=== PATIENT | female | born 1990 | race Caucasian/White ===

== ENCOUNTER 2022-12-07 05:30 | Inpatient (IN) ==
--- NOTE | 2022-11-28 15:14 | Anesthesiology Consultation ---
Date of Service November 28, 2022 Assessment & Plan (1) Encounter for pre-operative examination: Plan - Per corner block cutter on 11/28/2022: No known infectious disease contacts, current infectious disease symptoms in past 10 days or COVID positive test result in the past 90 days. Chart Review Chart Review: entry level paralegal initiated History Surgery Operation Date: 12/07/22 07:30 Proposed Procedures p Section (Delivery of Baby Through Abdominal Incision) - Robyn Carpenter DO s with Bilateral Tubal Ligation - Robyn Carpenter DO Height/Weight Height: 5 ft 11 in Weight: 119.295 kg Allergies Allergy/AdvReac Type Severity Reaction Status Date / Time miconazole [From Monistat 7] Allergy Intermediate burning Verified 11/28/22 14:52 Medications Home Medications Medication Instructions Recorded Confirmed Last Taken prenat.vits,aayush,okz-[id number] 1 tab PO DAILY 05/09/22 11/28/22 Unknown valacyclovir 500 mg tablet 500 mg PO DAILY PRN Break outs 05/11/22 11/28/22 Unknown (Valtrex) ondansetron HCl 4 mg tablet 4 mg PO TID PRN nausea and 06/25/22 11/28/22 Unknown vomiting 5 days #30 tabs promethazine 12.5 mg tablet 12.5 mg PO Q6H PRN nausea and 08/03/22 11/28/22 Unknown vomiting #30 tabs breast pump #1 ea 10/05/22 11/22/22 Unknown Past Medical History Medical History (Updated 11/28/22 @ 15:13 by Asia Burns PA-C) Anxiety Hx of concussion at age 16>hospitalized at time of injury Migraine Past Family History Family History Father Dementia Gall stones Mother Lymphoma Grandfather (Maternal) Breast cancer Grandmother (Maternal) Breast cancer Dementia Grandfather (Paternal) Dementia Aunt Breast cancer Aunt Deep vein thrombosis multiple aunts paternal Grandmother (Maternal) No problems noted. Grandmother (Paternal) Ovarian cancer Uncle Deep vein thrombosis multiple paternal Other Colorectal cancer Dyslipidemia Heart disease Hypertension Kidney disease Thyroid disease Twin Past Surgical History Surgical History (Updated 11/28/22 @ 15:00 by Gini Burns RN) Family history of reaction to anesthesia father>nausea S/P ACL repair left knee Social History Smoking Status: Never smoker Do You Dip or Chew Tobacco: No Hx Alcohol Use: No substance use type: does not use Testing Electrocardiogram Date: 09/19/22 NSR, rate 88 bpm Low voltage QRS Chest X-Ray Date: 09/19/22 *1view* No active disease in the chest
--- NOTE | 2022-12-06 09:34 | History & Physical Report ---
Date of Service December 06, 2022 Assessment & Plan (1) Encounter for pre-operative examination: Plan: Preop visit. Doing well. Plan for with tubal 12/07. Reviewed consent in detail. Discussed plan items - would prefer to do [id number] if possible, dim lights in OR (aware that unable to dim operating spots), delayed cord clamp, delay first bath. Will try to accommodate if safe and possible. (2) Supervision of normal intrauterine in primigravida: History of Present Illness Chief Complaint: elective section, tubal sterilization Primary Care Provider: Yinka Mcdonald 32yo @ 38 08/05, elective primary with tubal sterilization. 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 Allergies Allergy/AdvReac Type Severity Reaction Status Date / Time miconazole [From Monistat 7] Allergy Intermediate burning Verified 12/06/22 08:46 Home Medications Medication Instructions Recorded Confirmed Type prenat.vits,aayush,xub-xutn-htvks 1 tab PO DAILY 05/09/22 12/06/22 History valacyclovir 500 mg tablet 500 mg PO DAILY PRN Break outs 05/11/22 12/06/22 History (Valtrex) ondansetron HCl 4 mg tablet 4 mg PO TID PRN nausea and 06/25/22 12/06/22 Rx vomiting 5 days #30 tabs promethazine 12.5 mg tablet 12.5 mg PO Q6H PRN nausea and 08/03/22 12/06/22 Rx vomiting #30 tabs breast pump #1 ea 10/05/22 12/06/22 Rx Patient History Medical History (Updated 11/28/22 @ 15:13 by Asia Burns PA-C) Anxiety Hx of concussion at age 16>hospitalized at time of injury Migraine Surgical History (Updated 11/28/22 @ 15:00 by Gini Burns RN) Family history of reaction to anesthesia father>nausea S/P ACL repair left knee Family History Father Dementia Gall stones Mother Lymphoma Grandfather (Maternal) Breast cancer Grandmother (Maternal) Breast cancer Dementia Grandfather (Paternal) Dementia Aunt Breast cancer Aunt Deep vein thrombosis multiple aunts paternal Grandmother (Maternal) No problems noted. Grandmother (Paternal) Ovarian cancer Uncle Deep vein thrombosis multiple paternal Other Colorectal cancer Dyslipidemia Heart disease Hypertension Kidney disease Thyroid disease Twin Social History Smoking Status: Never smoker Second Hand Exposure: No; Do You Dip or Chew Tobacco: No; Hx Alcohol Use: No Preferred Language: Amharic [place] Required: No Beliefs That Will Affect Care: None marital status: marital status details: Andrew (33) [phone] Current Living Situation: Spouse Current Living Situation Comment: lives with spouse, 4 cats, 2 dogs, does not use promise litter. current occupational status: employed current occupation: Admin at [employer] Feels Safe at Home: Yes Assistive Devices: None Review of Systems All systems reviewed & are unremarkable except as noted in HPI & below Physical Exam Constitutional: WD/WN, vitals as above Respiratory: normal respiratory effort, lungs clear to auscultation no respiratory distress Cardiovascular: Rate/Rhythm: regular rate and regular rhythm Gastrointestinal (Abdomen): Inspection/Auscultation: abdomen normal to inspection Percussion/Palpation: abdomen soft; abdomen nontender Gravid. No s/s chorio or abruption. Skin: no rashes, warm and dry Psychiatric: A+Ox3, euthymic affect Coding Level of Care Code None Diagnoses Encounter for pre-operative examination Z01.818 Supervision of normal intrauterine in primigravida Z34.00
[2022-12-07] MEDS ORDERED: LACTATED RINGER'S 1,000 ML IV SCH ×2 (06:00→11:25)
[2022-12-07] MEDS ORDERED: CITRIC ACID/SODIUM CITRATE 15 ML UDC PO SCH (06:00)
[2022-12-07] MEDS ORDERED: ceFAZolin 3,000 MG in DEXTROSE 5% 50 ML IV SCH (06:00)
[2022-12-07 06:18] LABS: Basophils # (auto) 0.04 K/uL (0.00-0.20); Basophils % (auto) 0.4 %; Eosinophils # (auto) 0.16 K/uL (0.00-0.50); Eosinophils % (auto) 1.5 %; Hematocrit (blood only) 37.3 % (37.0-47.0); Immature Granulocytes # (auto) 0.06 K/uL (0.01-0.20); Immature Granulocytes % (auto) 0.6 %; Lymphocytes # (auto) 2.25 K/uL (1.20-3.40); Lymphocytes % (auto) 21.6 %; Mean Corpuscular Hemoglobin 30.5 pg (25.0-34.0); Mean Corpuscular Hgb Conc 34.9 g/dL (32.0-36.0); Mean Corpuscular Volume 87.6 fL (80.0-100.0); Mean Platelet Volume 10.8 fL (9.4-12.4); Monocytes # (auto) 0.56 K/uL (0.11-0.59); Monocytes % (auto) 5.4 %; Neutrophils # (auto) 7.36 K/uL (1.40-6.50); Neutrophils % (auto) 70.5 %; Platelet Count 221 K/uL (130-400); RDW Coefficient of Variation 12.5 % (11.5-14.5); RDW Standard Deviation 39.9 fL (36.4-46.3); Red Blood Count 4.26 M/uL (4.20-5.40); White Blood Count 10.43 K/ul (4.8-10.8)
[2022-12-07] MEDS ORDERED: ONDANSETRON INJ 2 MG/ML 2 ML VIAL IV PRN ×2 (07:37→10:12)
[2022-12-07] MEDS ORDERED: ONDANSETRON INJ 2 MG/ML 2 ML VIAL ONE (07:49)
[2022-12-07] MEDS ORDERED: OXYTOCIN 10 UNITS/ML VIAL ONE (07:49)
[2022-12-07] MEDS ORDERED: KETOROLAC 30 MG/ML VIAL ONE (07:49)
[2022-12-07] MEDS ORDERED: MoRPHine SULFATE PF 1 MG/ML 10 ML AMP/VIAL ONE (07:50)
[2022-12-07] MEDS ORDERED: fentaNYL citrate PF 100 MCG/2 ML VIAL ONE (07:50)
--- NOTE | 2022-12-07 08:09 | History & Physical Bridge Note ---
Date of Service December 07, 2022 History & Physical Bridge Note I have examined the patient, reviewed the History & Physical and in the interval since the performance of the History & Physical I have noted the following changes of clinical significance: no changes noted Limited bedside US shows cephalic fetus.
[2022-12-07] MEDS ORDERED: LACTATED RINGER'S 500 ML IV PRN (10:12)
[2022-12-07] MEDS ORDERED: PROMETHAZINE HCL 12.5 MG in SODIUM CHLORIDE 0.9% 50 ML IV PRN (10:12)
[2022-12-07] MEDS ORDERED: KETOROLAC 30 MG/ML VIAL IV PRN (10:12)
[2022-12-07] MEDS ORDERED: ePHEDrine sulfate 50 MG/ML AMP IV PRN (10:12)
[2022-12-07] MEDS ORDERED: ACETAMINOPHEN 1,000 MG/100 ML VIAL IV PRN (10:12)
[2022-12-07] MEDS ORDERED: NALOXONE HCL 1 MG in SODIUM CHLORIDE 0.9% 1,000 ML IV PRN (10:12)
[2022-12-07] MEDS ORDERED: NALBUPHINE HCL INJ 10 MG/ML AMP IV PRN (10:12)
[2022-12-07] MEDS ORDERED: NALOXONE HCL 0.4 MG/1 ML VIAL/CARP IV PRN (10:12)
[2022-12-07] MEDS ORDERED: NALOXONE HCL 0.08 MG in SYRINGE 1.8 ML IV PRN (10:12)
[2022-12-07] MEDS ORDERED: HYDROmorphone INJ 0.5 MG/0.5 ML SYR IV PRN (10:12)
[2022-12-07] MEDS ORDERED: diphenhydrAMINE 50 MG/ML VIAL IV PRN (10:12)
[2022-12-07] MEDS ORDERED: MoRPHine SULFATE PF 1 MG/ML 10 ML AMP/VIAL INT SPINAL ONE (10:12)
[2022-12-07] MEDS ORDERED: DC INTRASPINAL MORPHINE SCH (10:15)
[2022-12-07] MEDS ORDERED: NO NARCOTICS OR SEDATIVES SCH (10:15)
[2022-12-07] MEDS ORDERED: SODIUM CHLORIDE 0.9% 1,000 ML IV SCH (10:15)
[2022-12-07 10:46] LABS: Base Excess Cord Arterial Bld -3.1 mEq/L (-9-1.8); CO2 Cord Arterial Blood 52 mmHg (39.1-73.5); HCO3 Cord Arterial Blood 24 mmol/L (19.7-28.5); Oxygen Sat Cord Arterial Blood < 60.0 % (<60); PO2 Cord Arterial Blood 22 mmHg (4.1-31.7); pH Cord Arterial Blood 7.28 (7.1-7.38)
[2022-12-07 10:49] LABS: Base Excess Cord Venous Blood -1.9 mEq/L (-7.7-1.9); Cord Venous Blood HCO3 25 mmol/L (18.4-26.8); Cord Venous Blood PCO2 48 mmHg (30.4-57.2); Cord Venous Blood PO2 32 mmHg (14.1-43.3); Cord Venous Blood pH 7.32 (7.20-7.44); O2 Saturation Cord Venous Bld < 60.0 % (<68)
--- NOTE | 2022-12-07 10:50 | Operative Report ---
PG Post Operative Report Pre & Post Diagnosis Operation Date: 12/07/22 07:30 Pre-Op Diagnosis: elective section, tubal sterilization Post-Op Diagnosis: elective section, tubal sterilization I identified the patient and participated in the time-out.: Yes Procedure Operation Date: 12/07/22 07:30 Actual Procedures Primary Low Transverse Section in LD with result of live female child at 1001 - Robny Carpenter DO Bilateral tubal sterilization Surgeon Robyn Carpenter DO Poultry Sexer Robert Landaverde MD Estimated Blood Loss 500 Findings Consistent with Post-Op Diagnosis Specimens placenta, cord blood, cord gas Drains moreno clear yellow Anesthesia Type General Complications none Disposition Accompanied Patient To Recovery: No Disposition: L&D Indications 32yo 39 5/7, primary elective with desire for tubal sterilization Description of Procedure The patient was seen in her labor and delivery room, risks benefits and alternatives to surgery were reviewed. Informed consent obtained. Questions were answered. She was taken to the operating room, spinal anesthesia was administered. She was then prepared and draped in the usual sterile fashion in the supine position with a leftward tilt. Timeout was confirmed. Spinal was not providing adequate pain relief, therefore decision was made by anesthesia to place patient under general. A Pfannenstiel skin incision was made with a scalpel, and carried through to the underlying layer of fascia. Fascia was nicked at midline, and this incision was extended bilaterally. The superior aspect of the fascial incision was grasped with Lane clamps x2, elevated off the underlying rectus abdominis muscles, and dissected sharply and bluntly. In similar fashion, the inferior aspect of the fascial incision was dissected. The rectus abdominis muscles were , and the peritoneum was entered bluntly digitally. This was extended bilaterally. The bladder flap was taken down carefully using Metzenbaum scissors. Using a new scalpel, a low transverse uterine incision was created. Clear amniotic fluid noted. The was delivered from a cephalic presentation. The head delivered, followed by shoulders and body. Spontaneous cry on the field. The cord was doubly clamped and cut, and the was handed off to the waiting millwright apprentice. A segment was retained for cord gases. Cord blood was obtained. The placenta was delivered spontaneously intact. The uterus was exteriorized, and cleared of all clots and debris. The hysterotomy incision was reapproximated using 0 Vicryl in a running locked stitch. A second layer of the same suture was used to imbricate the incision. Posterior uterus was evaluated and normal. Right fallopian tube was identified to its fimbria, and transected from its mesosalpinx and from the uterus at the cornua. In similar fashion, the left fallopian tube was resected. Excellent hemostasis. The uterus was returned to the abdomen, and gutters were cleared of clots and debris. Excellent hemostasis was observed. The fascial incision was reapproximated using 0 Vicryl in a running stitch. The subcutaneous tissue was irrigated, and reapproximated using 2-0 plain gut in a running stitch. The skin was reapproximated using 4-0 Vicryl in a running subcuticular stitch. Steri-Strips and a bandage were applied. The patient tolerated the procedure well, and will be taken to the recovery area in stable and good condition. I attest to the content of the Intraoperative Record and any orders documented therein. Any exceptions are noted below. OB Procedure Charges 64047 42001 Add on Tubal for C/S
[2022-12-07] MEDS ORDERED: HYDROCORTISONE ACETATE 25 MG SUPP PR PRN (11:25)
[2022-12-07] MEDS ORDERED: MAGNESIUM HYDROXIDE SUSP 30 ML UDC PO PRN (11:25)
[2022-12-07] MEDS ORDERED: SENNA 8.6 MG TAB PO PRN (11:25)
[2022-12-07] MEDS ORDERED: BENZOCAINE 20% SPRY 85 APPLN/85 GM CAN EXT PRN (11:25)
[2022-12-07] MEDS ORDERED: ACETAMINOPHEN 500 MG TAB PO PRN (11:25)
[2022-12-07] MEDS ORDERED: DIPHTHERIA/TETANUS/PERTUSSIS Vaccine (Tdap, Age 7+yrs) 0.5mL SYR/VL IM ONE (11:25)
[2022-12-07] MEDS: OXYTOCIN 30 UNITS in LACTATED RINGER'S 1,000 ML IV SCH ×2 (11:48→19:33)
--- NOTE | 2022-12-07 11:59 | Anesthesiology Progress Note ---
Date of Service December 07, 2022 Anesthesia Post Procedure Vital Signs Vital Signs: Temp Pulse Resp BP Pulse Ox 12/07/22 11:29 18 12/07/22 11:19 18 12/07/22 11:09 18 12/07/22 10:59 16 12/07/22 10:49 97.7 F 16 12/07/22 06:05 98.2 F 18 12/07/22 11:54 71 100 12/07/22 11:49 69 102/65 100 12/07/22 11:44 64 96 12/07/22 11:39 99 12/07/22 11:39 72 12/07/22 11:39 70 115/71 12/07/22 11:34 73 99 12/07/22 11:29 99 12/07/22 11:29 79 12/07/22 11:29 70 125/77 12/07/22 11:24 79 98 12/07/22 11:19 84 127/72 98 12/07/22 11:14 82 95 12/07/22 11:10 89 94 12/07/22 11:09 85 119/62 95 12/07/22 11:04 104 H 96 12/07/22 10:59 98 H 129/78 97 12/07/22 10:54 107 H 96 12/07/22 10:49 99 H 127/72 96 12/07/22 06:57 71 109/70 12/07/22 05:46 81 114/74 Pain Intensity Lower Abdomen: Pain Intensity: 2 Transfer of Care Handoff Completed per policy Notes Mental Status: alert / awake / arousable and participated in evaluation Patient Amnestic to Procedure: Yes Nausea / Vomiting: adequately controlled Pain: adequately controlled Airway Patency, RR, SpO2: stable & adequate BP & HR: stable & adequate Hydration State: stable & adequate Neuraxial Anesthesia: was administered and sensory block is resolving Anesthetic Complications: no major complications apparent and Pt Satisfied with anesthetic care
[2022-12-07] MEDS: SIMETHICONE 80 MG CHEW PO SCH ×3 (13:43→20:35)
[2022-12-07] MEDS: DOCUSATE SODIUM 100 MG CAP PO SCH (20:35)
[2022-12-08] MEDS ORDERED: diphenhydrAMINE 50 MG/ML VIAL IV PRN (04:13)
[2022-12-08] MEDS ORDERED: diphenhydrAMINE Capsule 25 MG CAP PO PRN (04:13)
[2022-12-08] MEDS ORDERED: PROMETHAZINE HCL 25 MG in SODIUM CHLORIDE 0.9% 50 ML IV PRN (04:13)
[2022-12-08] MEDS ORDERED: ONDANSETRON INJ 2 MG/ML 2 ML VIAL IV PRN (04:13)
[2022-12-08] MEDS ORDERED: KETOROLAC 30 MG/ML VIAL IV PRN (04:13)
[2022-12-08] MEDS: IBUPROFEN 600 MG TAB PO PRN ×4 (04:49→18:19)
[2022-12-08] MEDS: oxyCODONE/ACETAMINOPHEN 5mg/325mg TAB PO PRN ×4 (04:50→18:18)
[2022-12-08 06:31] LABS: Basophils # (auto) 0.03 K/uL (0.00-0.20); Basophils % (auto) 0.3 %; Eosinophils # (auto) 0.12 K/uL (0.00-0.50); Hematocrit (blood only) 35.6 % (37.0-47.0); Hemoglobin 12.1 g/dl (12.0-16.0); Immature Granulocytes # (auto) 0.07 K/uL (0.01-0.20); Immature Granulocytes % (auto) 0.6 %; Lymphocytes # (auto) 1.63 K/uL (1.20-3.40); Mean Corpuscular Hemoglobin 30.1 pg (25.0-34.0); Mean Corpuscular Volume 88.6 fL (80.0-100.0); Mean Platelet Volume 10.6 fL (9.4-12.4); Monocytes # (auto) 0.78 K/uL (0.11-0.59); Monocytes % (auto) 6.7 %; Neutrophils % (auto) 77.4 %; Platelet Count 211 K/uL (130-400); RDW Coefficient of Variation 12.5 % (11.5-14.5); RDW Standard Deviation 40.8 fL (36.4-46.3); Red Blood Count 4.02 M/uL (4.20-5.40); White Blood Count 11.63 K/ul (4.8-10.8)
--- NOTE | 2022-12-08 06:40 | Obstetrical Progress Note ---
Date of Service <Jones Young DO - Last Filed: 12/08/22 06:59> December 08, 2022 Assessment & Plan <Jones Young DO - Last Filed: 12/08/22 06:59> (1) S/P : (2) S/P tubal ligation: Plan post-op day 1 s/p with bilateral tubal ligation Vital signs reviewed and WNL Pt feels well today, eating, voiding, and ambulating well Pain well controlled with Percocet and Motrin Routine post-op care - OOB, ambulation, diet progression as tolerated After discharge, will have 6 week follow-up with Dr. Carpenter. <Gloria Landaverde MD, FACOG - Last Filed: 12/08/22 08:13> (1) S/P : (2) S/P tubal ligation: Subjective <Jones Young DO - Last Filed: 12/08/22 06:59> Ambulation: ambulating normally Voiding: no voiding problems Passing Gas:: No Diet Tolerance:: regular diet Lochia:: Moderate Feeding Type:: breast feeding Pain well controlled with Percocet and Motrin. Pt endorses pain of anterior chest wall across clavicles. Review of Systems -Denies fever or chills -Denies dyspnea, chest pain, or palpitations -Denies breast pain -Denies dysuria -Denies headache or changes in vision Physical Exam <Jones Young DO - Last Filed: 12/08/22 06:59> General: Alert and oriented. No acute distress Cardiac: Regular rate and rhythm, no murmurs appreciated Respiratory: Lungs clear to auscultation bilaterally, No increased work of breathing Abdominal: Soft, non-tender, non-distended. Bowel sounds present. Uterus: Uterine fundus firm, palpable below umbilicus Extremities: No lower extremity edema, calves non-tender bilaterally Results & Data <Jones Young DO - Last Filed: 12/08/22 06:59> Vital Signs (Past 12 Hours) Vital Signs Temp Pulse Resp BP Pulse Ox O2 Del Method 12/08/22 04:12 20 98 12/08/22 03:55 18 96 12/08/22 03:00 18 96 12/08/22 02:28 37.2 C 81 18 107/72 95 Room Air 12/08/22 01:57 18 96 12/08/22 00:15 Room Air 12/08/22 01:06 20 97 12/08/22 00:00 18 98 12/07/22 23:00 18 96 12/07/22 23:46 37 C 91 H 20 121/81 97 Room Air 12/07/22 22:00 20 97 12/07/22 21:00 20 97 12/07/22 20:00 20 97 12/07/22 20:00 37.4 C 85 20 105/69 97 Room Air <Gloria Landaverde MD, FACOG - Last Filed: 12/08/22 08:13> Co-Signing Physician Notes Resident Physician Supervision Note: I interviewed and examined the patient. Discussed with Dr. Young and agree with findings and plan as documented in the note. Any exceptions or clarifications are listed here: discomfort in upper chest area related to fundal pressure during delivery of the baby. patient reassured. Documented By: Gloria Landaverde MD, FACOG Resident Activity Tracking <Jones Young DO - Last Filed: 12/08/22 06:59> Resident Involvement: Resident Care Provided Care Provided: OB Delivery
[2022-12-08] MEDS: SIMETHICONE 80 MG CHEW PO SCH ×4 (09:06→20:37)
[2022-12-08] MEDS: DOCUSATE SODIUM 100 MG CAP PO SCH ×2 (09:07→20:37)
[2022-12-08] MEDS: FERROUS SULFATE 325 MG TAB PO SCH (09:07)
[2022-12-08] MEDS: PRENATAL VITAMIN 1 TAB PO SCH (09:07)
[2022-12-08] MEDS ORDERED: bisacodyL 5 MG TABEC PO SCH (20:00)
[2022-12-09] MEDS: IBUPROFEN 600 MG TAB PO PRN ×3 (03:57→18:48)
[2022-12-09] MEDS: oxyCODONE/ACETAMINOPHEN 5mg/325mg TAB PO PRN ×3 (03:58→18:49)
[2022-12-09 07:00] LABS: Hematocrit (blood only) 36.9 % (37.0-47.0); Hemoglobin 12.4 g/dl (12.0-16.0)
[2022-12-09] MEDS: SIMETHICONE 80 MG CHEW PO SCH ×4 (08:41→20:24)
[2022-12-09] MEDS: DOCUSATE SODIUM 100 MG CAP PO SCH ×2 (08:41→20:24)
[2022-12-09] MEDS: FERROUS SULFATE 325 MG TAB PO SCH (08:41)
[2022-12-09] MEDS: PRENATAL VITAMIN 1 TAB PO SCH (08:41)
--- NOTE | 2022-12-09 09:50 | Obstetrical Progress Note ---
Date of Service December 09, 2022 Assessment & Plan (1) S/P : POD#2 doing well. Continue routine postop care, planning for DC home tomorrow. Subjective Ambulation: ambulating normally Voiding: no voiding problems Diet Tolerance:: regular diet Lochia:: Moderate Review of Systems All systems reviewed & are unremarkable except as noted in HPI & below Physical Exam Constitutional WD/WN, vitals as above no acute distress Respiratory normal respiratory effort Cardiovascular Rate/Rhythm: regular rate and regular rhythm Gastrointestinal (Abdomen) Inspection/Auscultation: abdomen normal to inspection; abdomen not distended Percussion/Palpation: abdomen soft Genitourinary OB Exam Abdomen: + fundal height Fundus: + firm; not tender Results & Data Vital Signs (Past 12 Hours) Vital Signs Temp Pulse Resp BP 12/08/22 23:30 36.8 C 76 18 118/82
[2022-12-09] MEDS ORDERED: bisacodyL 10 MG SUPP PR PRN (10:43)
--- NOTE | 2022-12-10 03:23 | Obstetrical Progress Note ---
Date of Service <Jones Young DO - Last Filed: 12/10/22 06:22> December 10, 2022 Assessment & Plan <Jones Young DO - Last Filed: 12/10/22 06:22> (1) S/P : (2) S/P tubal ligation: Plan post-op day 3 s/p with bilateral tubal ligation Vital signs reviewed and WNL Pt feels well today, eating, voiding, and ambulating well Pain well controlled with Percocet and Motrin Routine post-op care - OOB, ambulation, diet progression as tolerated After discharge, will have 6 week follow-up with Dr. Carpenter. <Robyn Carpenter, DO - Last Filed: 12/10/22 07:58> (1) S/P : (2) S/P tubal ligation: Subjective <Jones Young DO - Last Filed: 12/10/22 06:22> Ambulation: ambulating normally Voiding: no voiding problems Passing Gas:: Yes Diet Tolerance:: regular diet Lochia:: Small Feeding Type:: breast feeding Pain well controlled with Percocet and Motrin Review of Systems -Denies fever or chills -Denies dyspnea, chest pain, or palpitations -Denies breast pain -Denies dysuria -Denies headache or changes in vision Physical Exam <Jones Young DO - Last Filed: 12/10/22 06:22> General: Alert and oriented. No acute distress Cardiac: Regular rate and rhythm, no murmurs appreciated Respiratory: Lungs clear to auscultation bilaterally, No increased work of breathing Abdominal: Soft, non-tender, non-distended. Bowel sounds present. Uterus: Uterine fundus firm, palpable below umbilicus Extremities: No lower extremity edema, calves non-tender bilaterally Results & Data <Jones Young DO - Last Filed: 12/10/22 06:22> Vital Signs (Past 12 Hours) Vital Signs Temp Pulse Resp BP Pulse Ox O2 Del Method 12/10/22 00:10 36.9 C 78 20 119/79 97 Room Air 12/09/22 20:30 36.6 C 71 18 119/83 98 Room Air 12/09/22 15:25 36.6 C 77 18 129/87 96 Room Air <Robyn Carpenter DO - Last Filed: 12/10/22 07:58> Co-Signing Physician Notes Resident Physician Supervision Note: I was present with Dr. Young during the history and exam. I discussed the case with the resident and agree with the findings and plan as documented in the note. Any exceptions or clarifications are listed here: POD#3 doing well. DC home, instructions reviewed. Followup 6w PP. Rx [facility]. Documented By: Robyn Carpenter DO Resident Activity Tracking <Jones Young DO - Last Filed: 12/10/22 06:22> Resident Involvement: Resident Care Provided Care Provided: OB Delivery
[2022-12-10] MEDS: IBUPROFEN 600 MG TAB PO PRN ×2 (03:35→10:19)
[2022-12-10] MEDS: oxyCODONE/ACETAMINOPHEN 5mg/325mg TAB PO PRN ×2 (03:35→10:20)
[2022-12-10] MEDS: SIMETHICONE 80 MG CHEW PO SCH (09:17)
[2022-12-10] MEDS: DOCUSATE SODIUM 100 MG CAP PO SCH (09:17)
[2022-12-10] MEDS: FERROUS SULFATE 325 MG TAB PO SCH (09:17)
[2022-12-10] MEDS: PRENATAL VITAMIN 1 TAB PO SCH (09:17)
[2022-12-10] MEDS ORDERED: MEASLES, MUMPS & RUBELLA VIRUS VIAL SQ ONE (12:29)
== END 2022-12-10 14:06 | disposition home or self-care (01) | DRG 785 ==
LOC: 4S1 05:30 → EDSTATUS 07:30 → 4E2 13:15